=== PATIENT | male | born 1960 | race African-American/Black ===

== ENCOUNTER 2016-09-28 14:07 | Emergency (ER) | payer MEDICARE, MEDICAID ==
[~2016-09-28] VITALS: Ht 182.9 cm; Wt 90.7 kg
[2016-09-28 14:10] VITALS: BP 176/84
--- NOTE | 2016-09-28 14:37 | Emergency Room Report ---
History of Present Illness General Chief Complaint: Seizure Source: Patient, EMS Present Illness HPI Patient is a 56-year-old male who presented after a witnessed seizure. Patient poorly had prior history of seizure disorder. 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 He had no complaints of pain at this time. Patient reported taking Dilantin. The patient was noted initially to be postictal. Allergies: Coded Allergies: No Known Allergies (Unverified , 09/28/16) Patient History Past Medical History: see triage record Reviewed Nursing Documentation: PMH: Agreed, PSxH: Agreed Nursing Documentation-PMH Past Medical History: No History, Except For Hx Seizures: Yes Review of Systems All Other Systems: limited - by mental status Physical Exam Vital Signs Date Time Temp Pulse Resp B/P Pulse Ox O2 Delivery O2 Flow Rate FiO2 09/28/16 14:01 98.4 88 18 176/84 97 Room Air Sp02 EP Interpretation: reviewed, normal General Appearance: normal inspection, well appearing, no apparent distress, alert, GCS 15 Head: atraumatic ENT: normal ENT inspection, normal voice, uvula midline Neck: normal inspection, full range of motion, supple, no bony tend Respiratory: normal inspection, lungs clear, normal breath sounds, no respiratory distress, no retraction, no wheezing Cardiovascular #1: regular rate, rhythm, no edema Gastrointestinal: normal inspection, normal bowel sounds, non tender, soft, no guarding, no hernia Genitourinary: no CVA tenderness Musculoskeletal: normal inspection, back normal, normal range of motion Neurologic: normal inspection, alert, oriented x3, responsive, speech normal Psychiatric: normal inspection, judgement/insight normal, mood/affect normal Skin: normal inspection, normal color, no rash Medical Decision Making Diagnostic Impression: Primary Impression: Epileptic seizure, generalized ER Course Patient presented for seizure. Differential diagnosis included cysticercosis, Medication noncompliance,electrolyte abnormality, mass lesion, or cranial hemorrhage. Because of complexity of patient's case laboratory testing and imaging studies were ordered.A CT the head read by radiology showed no evidence of intracranial hemorrhage or mass lesions. Patient was given IV Keppra. The patient was also given Ativan IV. The patient was noted to have improvement in mental status a a brief seizure. The patient was given prescriptions for further doses of medications.The time of discharge patient was oriented awake and alert and ambulatory without assistance Labs Test 09/28/16 14:45 White Blood Count 10.5 K/UL (4.8-10.8) Red Blood Count 4.00 M/UL (4.70-6.10) Hemoglobin 14.1 G/DL (14.2-18.0) Hematocrit 42.9 % (42.0-52.0) Mean Corpuscular Volume 107 FL (80-99) Mean Corpuscular Hemoglobin 35.3 PG (27.0-31.0) Mean Corpuscular Hemoglobin Concent 32.9 G/DL (32.0-36.0) Red Cell Distribution Width 12.0 % (11.6-14.8) Platelet Count 139 K/UL (150-450) Mean Platelet Volume 9.1 FL (6.5-10.1) Neutrophils (%) (Auto) 84.5 % (45.0-75.0) Lymphocytes (%) (Auto) 9.1 % (20.0-45.0) Monocytes (%) (Auto) 5.8 % (1.0-10.0) Eosinophils (%) (Auto) 0.0 % (0.0-3.0) Basophils (%) (Auto) 0.5 % (0.0-2.0) Sodium Level 141 mEQ/L (135-145) Potassium Level 3.6 mEQ/L (3.4-4.9) Chloride Level 102 mEQ/L (98-107) Carbon Dioxide Level 25 mEQ/L (20-30) Anion Gap 14 (5-15) Blood Urea Nitrogen 14 mg/dL (7-23) Creatinine 1.0 mg/dL (0.7-1.2) Estimat Glomerular Filtration Rate > 60 mL/min (>60) Glucose Level 121 mg/dL (74-106) Calcium Level 9.8 mg/dL (8.6-10.2) Total Bilirubin 0.8 mg/dL (0.0-1.2) Aspartate Amino Transf (AST/SGOT) 22 U/L (5-40) Alanine Aminotransferase (ALT/SGPT) 15 U/L (3-41) Alkaline Phosphatase 91 U/L (40-129) Troponin I < 0.30 ng/mL (<=0.30) Total Protein 7.3 g/dL (6.6-8.7) Albumin 4.2 g/dL (3.5-5.2) Globulin 3.1 g/dL Albumin/Globulin Ratio 1.3 (1.0-2.7) Phenytoin (Dilantin) Level < 0.8 ug/mL (10-20) Valproic Acid (Depakene) Level < 3 ug/mL (50-100) Phenobarbital Level < 2.4 ug/mL (20.0-40.0) Last Vital Signs Date Time Temp Pulse Resp B/P Pulse Ox O2 Delivery O2 Flow Rate FiO2 09/28/16 14:01 98.4 88 18 176/84 97 Room Air Status: improved Disposition: HOME, SELF-CARE Condition: Stable Scripts Levetiracetam (KEPPRA) 500 Mg Tablet 500 MG ORAL EVERY 12 HOURS, #60 TAB 0 Refills Prov: Haris Irving 09/28/16 Haris Irving Sep 28, 2016 14:37
[2016-09-28] MEDS ORDERED: LORazepam Inj 2mg/ml 1ml ONE (14:54)
[2016-09-28] MEDS ORDERED: LORazepam Inj 2mg/ml 1ml IV ONE (15:00)
[2016-09-28 15:04] LABS: BASOPHILS % (AUTO) 0.5 % (0.0-2.0); LYMPHOCYTES % (AUTO) 9.1 % (20.0-45.0); MEAN CORPUSCULAR HEMOGLOBIN 35.3 PG (27.0-31.0); MEAN CORPUSCULAR HGB CONC 32.9 G/DL (32.0-36.0); MEAN CORPUSCULAR VOLUME 107 FL (80-99); MEAN PLATELET VOLUME 9.1 FL (6.5-10.1); MONOCYTES % (AUTO) 5.8 % (1.0-10.0); NEUTROPHILS % (AUTO) 84.5 % (45.0-75.0); PLATELET COUNT 139 K/UL (150-450); WHITE BLOOD COUNT 10.5 K/UL (4.8-10.8)
[2016-09-28 15:19] LABS: ALANINE AMINOTRANSFERASE 15 U/L (3-41); ALBUMIN/GLOBULIN RATIO 1.3 (1.0-2.7); ANION GAP 14 (5-15); ASPARTATE AMINO TRANSFERASE 22 U/L (5-40); CALCIUM 9.8 mg/dL (8.6-10.2); CARBON DIOXIDE 25 mEQ/L (20-30); CHLORIDE 102 mEQ/L (98-107); GLOMERULAR FILTRATION RATE > 60 mL/min (>60); HEMOLYSIS 4; POTASSIUM 3.6 mEQ/L (3.4-4.9); SODIUM 141 mEQ/L (135-145); TOTAL PROTEIN 7.3 g/dL (6.6-8.7); TROPONIN I < 0.30 ng/mL (<=0.30); VALPROIC ACID < 3 ug/mL (50-100)
[2016-09-28 16:00] VITALS: BP 154/83
[2016-09-28] MEDS ORDERED: levETIRAcetam 500mg/NS100ml 100 ML IVPB ONE (16:15)
[2016-09-28 16:30] VITALS: BP 160/73
[2016-09-28 17:30] VITALS: BP 126/92
[2016-09-28] MEDS ORDERED: KEPPRA500 M4 ORAL (17:47)
[2016-09-28 19:32] VITALS: BP 148/72
[2016-09-28 19:34] VITALS: BP 149/72
--- NOTE | 2016-09-29 14:34 | Diagnostic Imaging Report ---
Indication: Altered mental status Technique: Contiguous 5 mm thick transaxial imaging of the head obtained in a Siemens Sensation [address] scanner. Soft tissue and bone windows generated. Total Dose length Product (DLP): [address] Dose Index Volume (CTDIvol): 70.38 mGy Comparison: none Findings: The size and configuration of the cortical sulci, basal cisterns, and ventricles are within normal limits for age. There is no mass effect, midline shift, or edema identified. There is no evidence of acute hemorrhage or abnormal intra-axial or extra-axial fluid collections. The bones and soft tissues are unremarkable. Impression: No mass effect, edema or acute bleed. [facility] has communicated the preliminary results to the Emergency Department. Their findings are largely concordant with this report. The CT scanner at [facility] is accredited by the [employer] and the scans are performed using dose optimization techniques as appropriate to a performed exam including Automatic Exposure control.
--- NOTE | 2016-09-30 16:49 | Cardiology Report ---
APPROVED REPORT EKG Measurement Heart [id number] Sinus tachycardia Minimal voltage criteria for LVH, may be normal variant Nonspecific T wave abnormality Abnormal ECG
== END 2016-09-28 19:34 | disposition home or self-care (01) ==
LOC: EDBD 14:07 → EMR 17:50
DX: G40.909 Epilepsy, unspecified, not intractable, without status epilepticus (principal)
CPT/HCPCS: 36415; 70450; 80053; 80164; 80184; 80185; 82962; 84484; 85025; 93005; 96360; 96374; 99284; J1953

== ENCOUNTER 2018-08-14 19:44 | Inpatient (IN) | payer MEDICARE, MEDICAID ==
[~2018-08-14] VITALS: Ht 172.7 cm; Wt 120.1 kg
[~2018-08-14 19:44] MED LIST: KEPPRA500 M4 ORAL
--- NOTE | 2018-08-14 19:50 | NUR ---
ED Nurse Note: pt brought in by [facility] from home c/o SOB and chest pain, per EMS report, pt's sister called 911 because he had increase in lethargy and short of breath since yesterday. noted tachypnea but LS=clear to auscultation. pt AA&ox4, gcs=15, deaf, skin warm and dry, -n/v/d, sinus tach, noted decrease on o2sat, RT contacted, ERMD notified. will cont monitor.
[2018-08-14] MEDS ORDERED: Albuterol ud Inhalation HHN ONE (20:00)
[2018-08-14] MEDS ORDERED: Ipratropium 0.02% Inh Soln 2.5ml UD HHN ONE (20:00)
--- NOTE | 2018-08-14 20:17 | Emergency Room Report ---
History of Present Illness General Chief Complaint: Chest Pain Source: Patient, EMS Present Illness HPI EMS was called by the sister for altered mentation, dyspnea and abdominal distention. The patient has a history of COPD. The patient denies pain at this time. History is difficult to obtain as patient is deaf. It's uncertain how long the patient's been ill but he suffers from several chronic ailments. Paramedics state that the sister denied recent fevers. History of COPD, history of CHF, history of atrial fibrillation. Paramedics state that the sister denied being on blood thinners at this time. Patient is deaf. Allergies: Coded Allergies: No Known Allergies (Unverified , 09/28/16) Patient History Limited by: language barrier, medical condition Past Medical History: see triage record Social History: Denies: smoking, alcohol use, drug use Social History Narrative from home with his sister Reviewed Nursing Documentation: PMH: Agreed; PSxH: Agreed Nursing Documentation-PMH Past Medical History: No History, Except For Hx Cardiac Problems: Yes - AFIB, CHF Hx Hypertension: Yes Hx Diabetes: Yes Hx Seizures: Yes Review of Systems All Other Systems: limited Physical Exam Vital Signs Date Time Temp Pulse Resp B/P (MAP) Pulse Ox O2 Delivery O2 Flow Rate FiO2 08/14/18 19:41 97.5 112 18 148/84 (105) 100 Non-Rebreather Sp02 EP Interpretation: reviewed, abnormal - Interpreted as low by me General Appearance: no apparent distress, alert, non-toxic, Chronically Ill Head: normocephalic, atraumatic Eyes: bilateral eye normal inspection, bilateral eye PERRL, bilateral eye EOMI ENT: moist mucus membranes - Poor dentition Neck: full range of motion, supple Respiratory: decreased breath sounds, rales, wheezing, expiration Cardiovascular #1: regular rate, rhythm, edema - Anasarca with 2-3+ pit Cardiovascular #2: 2+ radial (R) Gastrointestinal: no guarding, no rebound, distended, decreased bowel sounds, overweight Genitourinary: other - Edema Musculoskeletal: swelling, other - Decreased range of motion Neurologic: alert, sensory intact, motor weakness - Diffuse Psychiatric: mood/affect normal Skin: warm/dry, cyanosis Medical Decision Making Diagnostic Impression: Primary Impression: CHF (congestive heart failure) Qualified Codes: I50.9 - Heart failure, unspecified Additional Impressions: Anasarca Hypoxia Hypothyroid Qualified Codes: E03.9 - Hypothyroidism, unspecified ER Course Patient with dyspnea, anasarca with history of COPD and CHF. Differential includes acute myocardial infarction, digestive heart failure,'s COPD exacerbation, pneumonia, electrolyte imbalance amongst others. Patient is obviously fluid overloaded at this time. He does have some bronchospasm and breathing treatments will be ordered. In addition a Lasix is ordered. The patient will be evaluated with EKG, chest x-ray and labs including blood cultures and lactic acid. EKG was sinus tachycardia rate [address]-T wave changes no acute injury. Chest x-ray with CHF and cardiomegaly. WBC normal. CMP with elevated LFTs (congestion?). CK mildly elevated. UA with proteinuria. O2 sats variable. Starting BIPAP. Discussed with Dr. Anderson. ABG on BIPAP with hypoxia. Elevated TSH suggests low thyroid. Laboratory Tests Test 08/14/18 20:00 08/14/18 23:32 White Blood Count 6.7 K/UL (4.8-10.8) Red Blood Count 3.25 M/UL (4.70-6.10) L Hemoglobin 10.3 G/DL (14.2-18.0) L Hematocrit 31.7 % (42.0-52.0) L Mean Corpuscular Volume 98 FL (80-99) Mean Corpuscular Hemoglobin 31.7 PG (27.0-31.0) H Mean Corpuscular Hemoglobin Concent 32.5 G/DL (32.0-36.0) Red Cell Distribution Width 16.0 % (11.6-14.8) H Platelet Count 111 K/UL (150-450) L Mean Platelet Volume 8.6 FL (6.5-10.1) Neutrophils (%) (Auto) 75.5 % (45.0-75.0) H Lymphocytes (%) (Auto) 15.3 % (20.0-45.0) L Monocytes (%) (Auto) 7.9 % (1.0-10.0) Eosinophils (%) (Auto) 0.2 % (0.0-3.0) Basophils (%) (Auto) 1.1 % (0.0-2.0) Prothrombin Time 12.5 SEC (9.30-11.50) H Prothrombin Time INR 1.2 (0.9-1.1) H PTT 27 SEC (23-33) Urine Color Yellow Urine Appearance Clear Urine pH 5 (4.5-8.0) Urine Specific [place] 1.020 (1.005-1.035) Urine Protein 3+ (NEGATIVE) H Urine Glucose (UA) Negative (NEGATIVE) Urine Ketones Negative (NEGATIVE) Urine Blood Negative (NEGATIVE) Urine Nitrite Negative (NEGATIVE) Urine Bilirubin Negative (NEGATIVE) Urine Urobilinogen 1 MG/DL (0.0-1.0) H Urine Leukocyte Esterase Negative (NEGATIVE) Urine RBC 0-2 /HPF (0 - 0) H Urine WBC 0-2 /HPF (0 - 0) Urine Squamous Epithelial Cells None /LPF (NONE/OCC) Urine Bacteria Few /HPF (NONE) Sodium Level 144 MMOL/L (136-145) Potassium Level 4.5 MMOL/L (3.5-5.1) Chloride Level 106 MMOL/L (98-107) Carbon Dioxide Level 28 MMOL/L (21-32) Anion Gap 10 mmol/L (5-15) Blood Urea Nitrogen 15 mg/dL (7-18) Creatinine 1.2 MG/DL (0.55-1.30) Estimate Glomerular Filtration Rate > 60 mL/min (>60) Glucose Level 131 MG/DL (74-106) H Lactic Acid Level 1.70 mmol/L (0.4-2.0) Calcium Level 9.9 MG/DL (8.5-10.1) Total Bilirubin 1.2 MG/DL (0.2-1.0) H Direct Bilirubin 0.3 MG/DL (0.0-0.3) Aspartate Amino Transferase (AST) 42 U/L (15-37) H Alanine Aminotransferase (ALT) 27 U/L (12-78) Alkaline Phosphatase 297 U/L (46-116) H Total Creatine Kinase 174 U/L (26-308) Troponin I 0.027 ng/mL (0.000-0.056) Pro-B-Type Natriuretic Peptide 6743 pg/mL (0-125) H Total Protein 8.6 G/DL (6.4-8.2) H Albumin 3.8 G/DL (3.4-5.0) Globulin 4.8 g/dL Albumin/Globulin Ratio 0.8 (1.0-2.7) L Lipase 119 U/L (73-393) Thyroid Stimulating Hormone (TSH) 3.885 uiU/mL (0.358-3.740) Arterial Blood pH 7.449 (7.350-7.450) Arterial Blood Partial Pressure CO2 38.6 mmHg (35.0-45.0) Arterial Blood Partial Pressure O2 57.5 mmHg (75.0-100.0) L Arterial Blood HCO3 26.2 mmol/L (22.0-26.0) H Arterial Blood Oxygen Saturation 86.7 % (95-100) *L Arterial Blood Base Excess 2.1 (-2-2) H Carlos Test Positive EKG Diagnostic Results Rate: tachycardiac Rhythm: NSR ST Segments: no acute changes Rhythm Strip Diag. Results EP Interpretation: yes Rhythm: no PVC's, no ectopy, other - Sinus tachycardia Chest X-Ray Diagnostic Results Chest X-Ray Diagnostic Results : Chest X-Ray Ordered: Yes # of Views/Limited/Complete: 1 View Indication: Shortness of Breath EP Interpretation: Yes Interpretation: no pneumothorax, other - CHF cardiomegaly and and possible effusions Impression: Other Electronically Signed by: Electronically signed by Faustino Brito MD Last Vital Signs Date Time Temp Pulse Resp B/P (MAP) Pulse Ox O2 Delivery O2 Flow Rate FiO2 08/15/18 00:51 97.4 114 20 131/76 91 Bi-pap 28 08/14/18 23:20 Status: improved Disposition: ADMITTED INPATIENT Condition: Serious Faustino Brito MD Aug 14, 2018 20:17
[2018-08-14 20:23] LABS: BASOPHILS % (AUTO) 1.1 % (0.0-2.0); EOSINOPHILS % (AUTO) 0.2 % (0.0-3.0); HEMATOCRIT 31.7 % (42.0-52.0); HEMOGLOBIN 10.3 G/DL (14.2-18.0); LYMPHOCYTES % (AUTO) 15.3 % (20.0-45.0); MEAN CORPUSCULAR VOLUME 98 FL (80-99); MONOCYTES % (AUTO) 7.9 % (1.0-10.0); NEUTROPHILS % (AUTO) 75.5 % (45.0-75.0); PLATELET COUNT 111 K/UL (150-450); RED BLOOD COUNT 3.25 M/UL (4.70-6.10); WHITE BLOOD COUNT 6.7 K/UL (4.8-10.8)
[2018-08-14 20:26] LABS: ANION GAP 10 mmol/L (5-15); BLOOD UREA NITROGEN 15 mg/dL (7-18); CALCIUM 9.9 MG/DL (8.5-10.1); CARBON DIOXIDE 28 MMOL/L (21-32); CHLORIDE 106 MMOL/L (98-107); CREATININE 1.2 MG/DL (0.55-1.30); POTASSIUM 4.5 MMOL/L (3.5-5.1); SODIUM 144 MMOL/L (136-145)
[2018-08-14 20:30] VITALS: BP 126/86
[2018-08-14 20:30] LABS: INR 1.2 (0.9-1.1)
[2018-08-14] MEDS ORDERED: LIPITOR40 MG ORAL (20:35)
[2018-08-14] MEDS ORDERED: LEXAPRO20 MG ORAL (20:35)
[2018-08-14] MEDS ORDERED: METFORMIN HCL1000 M1 ORAL ×2 (20:35→23:21)
[2018-08-14] MEDS ORDERED: LANTUS SOL100 UNIT/1 SUBQ ×2 (20:35→23:21)
[2018-08-14] MEDS ORDERED: FUROSEMIDE40 MG ORAL ×2 (20:35→23:21)
[2018-08-14] MEDS ORDERED: KEPPRA1000 MG ORAL ×2 (20:35→23:21)
--- NOTE | 2018-08-14 20:36 | NUR ---
June- Sister [phone]
[2018-08-14 20:40] LABS: ALANINE AMINOTRANSFERASE 27 U/L (12-78); ALBUMIN 3.8 G/DL (3.4-5.0); ALBUMIN/GLOBULIN RATIO 0.8 (1.0-2.7); ALKALINE PHOSPHATASE 297 U/L (46-116); ASPARTATE AMINO TRANSFERASE 42 U/L (15-37); BILIRUBIN,TOTAL 1.2 MG/DL (0.2-1.0); CREATINE KINASE 174 U/L (26-308)
[2018-08-14 20:41] LABS: BILIRUBIN,DIRECT 0.3 MG/DL (0.0-0.3)
--- NOTE | 2018-08-14 21:00 | NUR ---
ED Nurse Note: CONTACTED SISTER TO NOTIFY PT'S CONDITION AND FOR MEDICATION INFO.
[2018-08-14 21:25] LABS: APPEARANCE,URINE CLEAR; BILIRUBIN, URINE NEGATIVE (NEGATIVE); GLUCOSE, URINE (UA) NEGATIVE (NEGATIVE); KETONES,URINE NEGATIVE (NEGATIVE); LEUKOCYTE ESTERASE ,URINE NEGATIVE (NEGATIVE); NITRITE,URINE NEGATIVE (NEGATIVE); PH,URINE 5 (4.5-8.0); PROTEIN,URINE 3+ (NEGATIVE); UROBILINOGEN,URINE 1 MG/DL (0.0-1.0)
[2018-08-14 21:30] VITALS: BP_SYST 122; BP_DIAS 56; BP_DIAS 87
[2018-08-14 21:32] LABS: COLOR,URINE YELLOW
--- NOTE | 2018-08-14 22:00 | NUR ---
ED Nurse Note: PT HAD BM X1, NORMAL BROWN, MOD AMOUNT, PT CLEANED AND CHANGED, PT USED BEDSIDE COMMODE, NOTED STEADY GAIT W/ MIN ASSIST. WILL CONT MONITOR.
[2018-08-14 22:30] VITALS: BP 126/85
--- NOTE | 2018-08-14 23:00 | NUR ---
ED Nurse Note: NOTED PT IN INCREASE RESP EFFORT WITH TACHYPNEA AFTER BREATHING TX, ERMD NOTIFIED REGARDING PT'S CONDITION.
[2018-08-14 23:20] VITALS: BP 135/76
[2018-08-14] MEDS ORDERED: BIDIL TABLET1 EACH PO (23:21)
[2018-08-14] MEDS ORDERED: LISINOPRIL5 MG ORAL (23:21)
[2018-08-14] MEDS ORDERED: SYNTHROID137 MCG ORAL (23:21)
[2018-08-14] MEDS ORDERED: METOPROLOL SUCC25 MG ORAL (23:21)
[2018-08-14] MEDS ORDERED: AMLODIPINE BESY10 MG ORAL (23:21)
[2018-08-14] MEDS ORDERED: GLIPIZIDE10 MG PO (23:21)
[2018-08-14] MEDS ORDERED: ISOSORBIDE DINI20 M2 PO (23:21)
[2018-08-14] MEDS ORDERED: BUMETANIDE1 MG ORAL ×2 (23:21)
--- NOTE | 2018-08-14 23:39 | NUR ---
ED Nurse Note: CONTACTED RT FOR BIPAP
--- NOTE | 2018-08-14 23:45 | NUR ---
ED Nurse Note: PT RESTING AT THIS TIME, VSS, ON BIPAP, WILL CONT MONITOR.
--- NOTE | 2018-08-15 00:18 | NUR ---
ED Nurse Note: CALLED TO GIVE REPORT TO SDU, RECEIVING RN CURRENTLY UNAVAILABLE, CALL BACK IN 10.
--- NOTE | 2018-08-15 00:43 | NUR ---
ED Nurse Note: REPORT GIVEN TO RIMMA SHORT FROM [facility]
--- NOTE | 2018-08-15 01:00 | NUR ---
ED Nurse Note: pt transferred to SDU with all belongings sent w/ completed list, care endorsed to RIMMA Araiza,iv intact and patent. sinus tach, rt at the bedside.
--- NOTE | 2018-08-15 01:30 | NUR ---
NURSE NOTES: Pt report and pt was brought up with [facility]. Pt appears to be in stable condition as he is alert and oriented times 4 and able to follow commands. Pt was brought up with all belongings. Pt appears to be saturating at 100% with BiPAP. pt be rails are padded. all safety precautions are active, bed is in lowest position with call light within reach, bed alarm active. will establish plan of care.
[2018-08-15] MEDS ORDERED: LIPITOR40 MG ORAL (02:01)
[2018-08-15] MEDS ORDERED: LANTUS SOL100 UNIT/1 SUBQ (02:19)
--- NOTE | 2018-08-15 02:30 | NUR ---
NURSE NOTES: Jose Juan Milner called and stated to continue all home meds as well as AM BMP, Trop, Cardiac diet, and SCDs. will place out orders.
[2018-08-15 04:00] VITALS: BP 124/74
[2018-08-15 05:20] LABS: ANION GAP 8 mmol/L (5-15); BLOOD UREA NITROGEN 15 mg/dL (7-18); CALCIUM 9.4 MG/DL (8.5-10.1); CARBON DIOXIDE 30 MMOL/L (21-32); CHLORIDE 108 MMOL/L (98-107); CREATININE 1.2 MG/DL (0.55-1.30); POTASSIUM 3.3 MMOL/L (3.5-5.1); SODIUM 146 MMOL/L (136-145)
[2018-08-15] MEDS: GlipiZIDE 5mg tab ORAL SCH ×2 (05:57→17:19)
[2018-08-15] MEDS ORDERED: Furosemide 40mg tab ORAL ONE (06:30)
--- NOTE | 2018-08-15 07:10 | NUR ---
HAND-OFF: Report given to Jose G BENITEZ.
--- NOTE | 2018-08-15 07:22 | NUR ---
NURSE NOTES: Received report from RIMMA Hicks. Patient is resting in bed in stable condition. No s/sx of SOB, breathing is even and unlabored. Denies any presence of pain or discomfort at this time. Bed is in lowest position, brakes engaged. Díaz is patent and draining. Call light is kept within easy reach. Will continue to monitor patient.
[2018-08-15 08:00] VITALS: BP 119/77
[2018-08-15] MEDS: Lisinopril 2.5mg tab ORAL SCH (08:23)
[2018-08-15] MEDS: metFORMIN 500mg tab ORAL SCH ×2 (08:24→17:19)
[2018-08-15] MEDS ORDERED: Bumetanide 1mg tab ORAL SCH (09:00)
[2018-08-15] MEDS ORDERED: Metoprolol Succinate XL 25mg tab ORAL SCH (09:00)
--- NOTE | 2018-08-15 09:12 | NUR ---
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 ANASARCA VS: BP 148/84, P 118, T 97.5, RR 18, SpO2 100 on Bi-pap FiO2 28 RBC 3.25, H&H 10.3/31.7, Na 146, K 3.3 IS:LASIX 40mg ATROVENT 500 mcg PROVENTIL 5mg ADMITTED TO [facility]U DCP: RETURN HOME
--- NOTE | 2018-08-15 09:25 | NUR ---
NURSE NOTES: Informed Dr. Anderson of potassium level of 3.3. acknowledge and ordered k-dur 20 mEq PO x1. Order entered, noted, and carried out. Will continue to monitor patient.
--- NOTE | 2018-08-15 10:13 | NUR ---
*-* INSURANCE *-* ALL AVAILABLE CLINICALS AND REVIEWS HAVE BEEN FACED TO: [facility]: ANNY LARSEN P:[phone] F:[phone]
--- NOTE | 2018-08-15 10:22 | Diagnostic Imaging Report ---
Indication: Dyspnea Comparison: None A single view chest radiograph was obtained. Findings: There is evidence of pulmonary vascular congestion with peribronchial cuffing and cardiomegaly interstitial densities and a right pleural effusion. IMPRESSION: CHF
[2018-08-15] MEDS: cefTRIAXone 1 GM in D5W 55 ML IVPB SCH (10:52)
[2018-08-15] MEDS: Solu-MEDROL 40mg Inj IVP SCH ×2 (10:52→21:26)
--- NOTE | 2018-08-15 11:00 | NUR ---
NURSE NOTES: Irene Benitez called nurse station, per patient Ms. Benitez may be provided medical information. Per Eli, they are patient's power of residential pest control technician and will visit to provide documentation. Noted. Ms. Benitez tel: . Charge nurse made aware. Will continue to monitor patient. Addendum: 08/15/18 at 1610 by OSCAR LARSON RN NURSE NOTES: Per Ms. Benitez, she is patient's sister and lives with her. Noted.
[2018-08-15 12:00] VITALS: BP 131/86
--- NOTE | 2018-08-15 12:27 | Cardiology Progress Note ---
Assessment/Plan Assessment/Plan The patient is seen and examined, full consult note will be dictated. Objective Last 24 Hour Vital Signs Date Time Temp Pulse Resp B/P (MAP) Pulse Ox O2 Delivery O2 Flow Rate FiO2 08/15/18 08:23 109 119/77 08/15/18 08:23 119/77 08/15/18 08:22 109 119/77 08/15/18 08:00 5.0 08/15/18 08:00 Bi-pap 08/15/18 08:00 98.4 109 24 119/77 (91) 93 08/15/18 05:58 124/74 08/15/18 04:55 108 19 95 Facial 40 08/15/18 04:00 Bi-pap 08/15/18 04:00 110 08/15/18 04:00 98.1 110 20 124/74 (91) 96 08/15/18 03:54 103 23 94 Facial 40 08/15/18 02:00 Bi-pap 15.0 08/15/18 01:58 105 08/15/18 01:03 118 24 92 Facial 40 08/15/18 00:51 97.4 114 20 131/76 91 Bi-pap 28 08/15/18 00:21 25 08/14/18 23:50 110 23 94 Facial 28 08/14/18 23:20 98.2 115 14 135/76 92 Bi-pap 28 08/14/18 22:30 98.2 112 14 126/85 92 Nasal Cannula 3.0 08/14/18 21:30 97.5 112 14 122/87 92 Nasal Cannula 3.0 08/14/18 20:44 102 14 89 Nasal Cannula 2.0 28 08/14/18 20:34 28 08/14/18 20:30 97.5 118 12 126/86 92 Nasal Cannula 3.0 08/14/18 20:30 118 18 Nasal Cannula 3.0 08/14/18 20:05 112 12 87 Nasal Cannula 2.0 28 08/14/18 19:41 97.5 112 18 148/84 (105) 100 Non-Rebreather Intake and Output 08/14/18 08/15/18 18:59 06:59 Intake Total 40 ml Output Total 500 ml Balance -460 ml Intake IV Total 40 ml Output Urine Total 500 ml Laboratory Tests Test 08/14/18 20:00 08/14/18 23:32 6/3/19 03:40 White Blood Count 6.7 K/UL (4.8-10.8) Red Blood Count 3.25 M/UL (4.70-6.10) L Hemoglobin 10.3 G/DL (14.2-18.0) L Hematocrit 31.7 % (42.0-52.0) L Mean Corpuscular Volume 98 FL (80-99) Mean Corpuscular Hemoglobin 31.7 PG (27.0-31.0) H Mean Corpuscular Hemoglobin Concent 32.5 G/DL (32.0-36.0) Red Cell Distribution Width 16.0 % (11.6-14.8) H Platelet Count 111 K/UL (150-450) L Mean Platelet Volume 8.6 FL (6.5-10.1) Neutrophils (%) (Auto) 75.5 % (45.0-75.0) H Lymphocytes (%) (Auto) 15.3 % (20.0-45.0) L Monocytes (%) (Auto) 7.9 % (1.0-10.0) Eosinophils (%) (Auto) 0.2 % (0.0-3.0) Basophils (%) (Auto) 1.1 % (0.0-2.0) Prothrombin Time 12.5 SEC (9.30-11.50) H Prothromb Time International Ratio 1.2 (0.9-1.1) H Activated Partial Thromboplast Time 27 SEC (23-33) Urine Color Yellow Urine Appearance Clear Urine pH 5 (4.5-8.0) Urine Specific [place] 1.020 (1.005-1.035) Urine Protein 3+ (NEGATIVE) H Urine Glucose (UA) Negative (NEGATIVE) Urine Ketones Negative (NEGATIVE) Urine Blood Negative (NEGATIVE) Urine Nitrite Negative (NEGATIVE) Urine Bilirubin Negative (NEGATIVE) Urine Urobilinogen 1 MG/DL (0.0-1.0) H Urine Leukocyte Esterase Negative (NEGATIVE) Urine RBC 0-2 /HPF (0 - 0) H Urine WBC 0-2 /HPF (0 - 0) Urine Squamous Epithelial Cells None /LPF (NONE/OCC) Urine Bacteria Few /HPF (NONE) Sodium Level 144 MMOL/L (136-145) 146 MMOL/L (136-145) H Potassium Level 4.5 MMOL/L (3.5-5.1) 3.3 MMOL/L (3.5-5.1) L Chloride Level 106 MMOL/L (98-107) 108 MMOL/L (98-107) H Carbon Dioxide Level 28 MMOL/L (21-32) 30 MMOL/L (21-32) Anion Gap 10 mmol/L (5-15) 8 mmol/L (5-15) Blood Urea Nitrogen 15 mg/dL (7-18) 15 mg/dL (7-18) Creatinine 1.2 MG/DL (0.55-1.30) 1.2 MG/DL (0.55-1.30) Estimat Glomerular Filtration Rate > 60 mL/min (>60) > 60 mL/min (>60) Glucose Level 131 MG/DL (74-106) H 84 MG/DL (74-106) Lactic Acid Level 1.70 mmol/L (0.4-2.0) Calcium Level 9.9 MG/DL (8.5-10.1) 9.4 MG/DL (8.5-10.1) Total Bilirubin 1.2 MG/DL (0.2-1.0) H Direct Bilirubin 0.3 MG/DL (0.0-0.3) Aspartate Amino Transf (AST/SGOT) 42 U/L (15-37) H Alanine Aminotransferase (ALT/SGPT) 27 U/L (12-78) Alkaline Phosphatase 297 U/L (46-116) H Total Creatine Kinase 174 U/L (26-308) Troponin I 0.027 ng/mL (0.000-0.056) 0.040 ng/mL (0.000-0.056) Pro-B-Type Natriuretic Peptide 6743 pg/mL (0-125) H Total Protein 8.6 G/DL (6.4-8.2) H Albumin 3.8 G/DL (3.4-5.0) Globulin 4.8 g/dL Albumin/Globulin Ratio 0.8 (1.0-2.7) L Lipase 119 U/L (73-393) Thyroid Stimulating Hormone (TSH) 3.885 uiU/mL (0.358-3.740) Arterial Blood pH 7.449 (7.350-7.450) Arterial Blood Partial Pressure CO2 38.6 mmHg (35.0-45.0) Arterial Blood Partial Pressure O2 57.5 mmHg (75.0-100.0) L Arterial Blood HCO3 26.2 mmol/L (22.0-26.0) H Arterial Blood Oxygen Saturation 86.7 % (95-100) *L Arterial Blood Base Excess 2.1 (-2-2) H Carlos Test Positive Sheng Smith MD Aug 15, 2018 12:27
[2018-08-15] MEDS: metOLazone 2.5 MG TAB ORAL SCH (13:29)
--- NOTE | 2018-08-15 14:30 | NUR ---
NURSE NOTES: Called Dr. Smith's office, spoke with dental secretary, left message regarding STAT magnesium level fo 1.4. Patient is alert and oriented x 4. Awaiting call back. Will continue to monitor patient.
--- NOTE | 2018-08-15 15:30 | NUR ---
NURSE NOTES: Called Dr. Smith's office, second call. Spoke with administrative secretary, per administrative secretary informed Dr. Smith. Awaiting call back. Will continue to monitor patient.
[2018-08-15 16:00] VITALS: BP 138/89
--- NOTE | 2018-08-15 16:35 | NUR ---
NURSE NOTES: Called and informed Dr. Anderson of magnesium level of 1.4. MD acknowledged. No new orders given at this time. Will continue to monitor patient.
--- NOTE | 2018-08-15 16:59 | NUR ---
NURSE NOTES: Followed up with Dr. Smith regarding magnesium level of 1.4. Ordered Magnesium sulfate 1 gm IV x 2. Also informed MD of 2D echocardiogram ejection fraction of 10-15%. MD acknowledged. Ordered daily weight, fluid restriction of 1,500ml daily, accurate intake and output, daily BMP and magnesium level. Orders entered, noted, and carried out. Will continue to monitor patient.
--- NOTE | 2018-08-15 17:31 | Diagnostic Imaging Report ---
APPROVED REPORT CPT Code: 01153 Present Symptoms Shortness of breath BILATERAL: Imaging reveals a patent deep venous system bilaterally. There is no evidence of thrombus within the femoral, popliteal or tibial segments. The greater saphenous veins are also within normal limits. Doppler indicates normal spontaneous flow within these segments. INCIDENTAL FINDING: Enlarged lymph node noted near left groin area.
--- NOTE | 2018-08-15 18:15 | History and Physical Report ---
DATE OF ADMISSION: 08/14/2018 HISTORY OF PRESENT ILLNESS: This is a 57-year-old male, who was admitted to the hospital overnight due to findings of pulmonary edema. The patient is a 57-year-old male, who presented to the hospital with change in mental status. He also reports shortness of breath and distention of the abdomen. The patient is deaf, unable to communicate, but a previous history is notable of chronic atrial fibrillation, CHF, and COPD. The patient was seen in the emergency room and worked up subsequent to which he was found to have evidence of anemia, normal troponin, normal lactic acid. ABG showed hypoxemia. INR was 1.2. Imaging studies showed evidence of pulmonary edema. He was diuresed and placed in [facility]. He was also started on a BiPAP. PAST MEDICAL HISTORY: Notable for COPD, CHF, atrial fibrillation. HOME MEDICATIONS: Reviewed and reconciled in the chart. REVIEW OF SYSTEMS: Not reliable. PHYSICAL EXAMINATION: GENERAL: Reveals a 57-year-old male. HEENT: Unremarkable. CHEST: Few basilar crackles. HEART: Normal heart sounds. ABDOMEN: Soft. EXTREMITIES: There is 2+ edema bilaterally. VITAL SIGNS: Blood pressure is 119/77, heart rate 104, respirations are 22, O2 saturation 93% on 5 liters of oxygen. He is afebrile. LABORATORY DATA: Lab testing discussed above notable for negative urinalysis. Potassium 3.2 this morning. Coags, INR 1.2. White count 6.7, hemoglobin 9.3. ABG pH 7.44, pCO2 38, pO2 57. IMPRESSION: 1. Pulmonary edema. 2. COPD. 3. Deafness. 4. Seizure disorder. 5. Pulmonary edema. DISCUSSION: Admit to the hospital. We will continue diuresis. Start low-dose steroids given his use of Glucophage. He may have a history of diabetes although this was not clearly elucidated in the records. We will follow carefully. We will discontinue Lasix and Bumex and start intravenous furosemide. We will follow carefully. Jose Juan Anderson M.D. DR: NIKI JOB#: [id number] CC:
--- NOTE | 2018-08-15 19:00 | Consultation ---
DATE OF CONSULTATION: 08/15/2018 CARDIOLOGY CONSULTATION CONSULTING PHYSICIAN: Sheng Smith M.D. REFERRING PHYSICIAN: Jose Juan Anderson M.D. REASON FOR CONSULTATION: Management of heart failure. HISTORY OF PRESENT ILLNESS: The patient is a very unfortunate 57-year-old gentleman, who presents to the emergency department for altered level of consciousness, dyspnea, and abdominal distention. A call was made to the paramedics by his sister as the patient is deaf. The patient apparently has history of congestive heart failure, paroxysmal atrial fibrillation, and COPD. At the time of my evaluation in the emergency department, the patient did not have any specific complaints of shortness of breath or chest pain. Initial blood pressure was 148/48 mmHg and heart rate was 112. A 12-lead electrocardiogram in the emergency department showed sinus tachycardia at rate of [address] and T-wave abnormalities, but no clear-cut evidence of acute ischemia. A chest x-ray, however, showed cardiomegaly with pulmonary edema as well as right pleural effusion. The patient's beta-natriuretic peptide was 6743, however, troponin I level x2 were negative. The patient was also found to have a high TSH level of 3.88 suggestive of mild hypothyroidism. The patient was admitted to [facility] for further evaluation and management of acute heart failure. Cardiology consultation was made at the request of Dr. Anderson. PAST MEDICAL HISTORY: Congestive heart failure, COPD, and paroxysmal atrial fibrillation. PAST SURGICAL HISTORY: Nose surgery. SOCIAL HISTORY: Denies any tobacco, alcohol, or illicit drug use. The patient comes from home accompanied by his sister. ALLERGIES: No known drug allergies. MEDICATIONS: List of medications at home includes amlodipine 10 mg p.o. daily, atorvastatin 40 mg p.o. daily, bumetanide 1 mg p.o. twice daily, Lasix 40 mg daily, glipizide 5 mg twice daily, insulin Lantus 6 units subcutaneously nightly, isosorbide dinitrate 10 mg q.8 h., Keppra 500 mg q.12 h., Synthroid 50 mcg p.o. daily, lisinopril 2.5 mg daily, metformin 1000 mg p.o. twice daily, and metoprolol 25 mg twice daily. REVIEW OF SYSTEMS: Unfortunately, the patient is deaf and could not provide a 12-system review PHYSICAL EXAMINATION: VITAL SIGNS: At the time of arrival to the hospital, blood pressure was 148/__, respirations 18, pulse 112, and temperature 97.5 degrees Fahrenheit. O2 saturation 100% on non-rebreather mask. GENERAL: The patient is a very unfortunate 57-year-old gentleman, obese, deaf therefore not communicating verbally, in mild respiratory distress. The patient appears to be chronically ill. HEENT: Atraumatic and normocephalic. Anicteric. Pupils are equal, round, and reactive to light and accommodation. Conjunctival pallor is present. NECK: JVP cannot be assessed in view of short neck and obesity. No carotid bruit. CARDIOVASCULAR: Normal S1, S2. Regular rate and rhythm. Tachycardic. No murmurs, gallops, or rubs. LUNGS: Diminished breath sounds with bibasilar crackles. ABDOMEN: Distended. No hepatosplenomegaly. Positive bowel sounds. EXTREMITIES: 3+ tense pitting edema to lower extremities. LABORATORY FINDINGS: Sodium was 144, potassium 4.5, chloride 106, bicarbonate 28, BUN 15, and creatinine 1.2. Glucose 131. Calcium 9.9. Troponin I x2 negative. ProBNP was 6743. WBC 6.7, hemoglobin 10.3, hematocrit 31.7, and platelet count 111. ABG was hypoxemic respiratory failure. ASSESSMENT AND PLAN: The patient is a very unfortunate 57-year-old gentleman, seen in Cardiology consultation. 1. Clinically appears to be in acute heart failure with evidence of hypervolemia, the patient's beta-natriuretic peptide is also elevated over 6700. The patient will be continued on furosemide 40 mg twice daily. I would like to add a small dose of metolazone to the regimen. We will continue monitoring I's and O's strictly, fluid restriction 1500 mL per day. I would like to order 2-D echocardiography and assess LV systolic and diastolic function. 2. Paroxysmal atrial fibrillation, currently in sinus rhythm/sinus tachycardia. We will like to optimize metoprolol until after the results of echocardiography is available. 3. Obesity, possible obesity hypoventilation syndrome. 4. History of hypertension. We will continue with the current medical therapy. 5. History of diabetes mellitus. We will consider aspirin and statin for this patient. I would like to thank Dr. Anderson for allowing me to participate in the care of this patient. Sheng Smith M.D. DR: LOC JOB#: [id number] CC:
--- NOTE | 2018-08-15 19:07 | Cardiology Report ---
APPROVED REPORT EXAM: Two-dimensional and M-mode echocardiogram with Doppler and color Doppler. INDICATION Congestive Heart Failure M-Mode DIMENSIONS IVSd1.0 (0.7-1.1cm)Left Atrium (MM)3.3 (1.6-4.0cm) LVDd7.2 (3.5-5.6cm)Aortic Root3.0 (2.0-3.7cm) PWd1.3 (0.7-1.1cm)Aortic Cusp Exc.2.0 (1.5-2.0cm) LVDs5.4 (2.5-4.0cm) PWs1.7 cm Fourr chamber dilated cardiomyopathy, there is severe global left ventricular hypokinesia except the mid inferior wall and the apical septal wall which are hypokinetic. Ischemic cardiomyopathy cannot be excluded. Left ventricular ejection fraction is estimated at 10-15 %. Increased E point-interventricular septal separation c/w left ventricular dysfunction and /or LV enlargement. No evidence of left ventricular hypertrophy. Anterior Echo-free space, may be due to pericardial fat or effusion. Large posterior effusion. Focal aortic valve sclerosis with adequate cusp excursion. Thickened mitral valve leaflets with normal excursion. Mitral annulus and aortic root calcification. Pulmonic valve not well visualized. Normal tricuspid valve structure. IVC dilated at 3.0 cm without physiologic collapse suggestive of RA pressure at least 20 mmHg. Small pericardial effusion. A color flow and spectral Doppler study was performed and revealed: Trace aortic regurgitation. Moderate mitral regurgitation. Mitral inflow velocities cannot be determined due to the underlying atrial arrythmias. Moderate tricuspid regurgitation. Tricuspid systolic velocities suggests peak right ventricular systolic pressure of 42 mmHg, consistent with mild to moderate pulmonary hypertension.
--- NOTE | 2018-08-15 19:19 | NUR ---
HAND-OFF: Report given to RIMMA Garcia.
--- NOTE | 2018-08-15 19:23 | Cardiology Report ---
APPROVED REPORT EKG Measurement Heart [id number] Sinus tachycardia Nonspecific T wave abnormality Abnormal ECG
--- NOTE | 2018-08-15 19:30 | NUR ---
NURSE NOTES: Received patient from RIMMA Araiza. patient is awake and confused. He is responsive to verbal commands. denies pain at this time. patient is on 4 liters nasal cannula with no s/sx of respiratory distress noted. patient is on fluid restriction of 1500 cc/day. educated patient regarding fluid restriction. solis catheter is patent, intact, and draining. IV sites are patent and intact. bed in lowest position and locked, siderails up X 2, call light within reach. patient tried to get out of bed. educated patient to use call light for ambulatory assist. will continue to monitor.
[2018-08-15 20:00] VITALS: BP 120/69
[2018-08-16] VITALS: BP 125/76
[2018-08-16 04:00] VITALS: BP 124/83
[2018-08-16] MEDS: GlipiZIDE 5mg tab ORAL SCH ×2 (06:25→17:56)
[2018-08-16 06:35] LABS: HEMATOCRIT 28.8 % (42.0-52.0); HEMOGLOBIN 9.1 G/DL (14.2-18.0); MEAN CORPUSCULAR VOLUME 100 FL (80-99); PLATELET COUNT 98 K/UL (150-450); RED BLOOD COUNT 2.87 M/UL (4.70-6.10); RED CELL DISTRIBUTION WIDTH 16.5 % (11.6-14.8); WHITE BLOOD COUNT 3.9 K/UL (4.8-10.8)
[2018-08-16 06:58] LABS: ANION GAP 11 mmol/L (5-15); BLOOD UREA NITROGEN 25 mg/dL (7-18); CALCIUM 9.7 MG/DL (8.5-10.1); CARBON DIOXIDE 27 MMOL/L (21-32); CHLORIDE 105 MMOL/L (98-107); CREATININE 1.6 MG/DL (0.55-1.30); SODIUM 143 MMOL/L (136-145)
--- NOTE | 2018-08-16 06:58 | NUR ---
HAND-OFF: Report given to RIMMA Araiza. patient is in stable condition.
--- NOTE | 2018-08-16 07:05 | NUR ---
NURSE NOTES: Received report from RIMMA Tomlinson. Patient is resting in bed, in stable condition. No s/sx of SOB, breathing is even and unlabored. Denies any presence of pain or discomfort at this time. Bed is in lowest position, brakes engaged. Call light is kept within easy reach. Will continue to monitor patient.
[2018-08-16 08:00] VITALS: BP 121/73
--- NOTE | 2018-08-16 08:19 | Pulmonology Progress Note ---
Assessment/Plan Assessment/Plan IMPRESSION: 1. Pulmonary edema. 2. COPD. 3. Deafness. 4. Seizure disorder. 5. Pulmonary edema. 6. DM DISCUSSION: Continue diuresis. Continue low-dose steroids. Monitor for hyperglycemia I will follow carefully. Subjective Interval Events: Looking better; off BiPAP Constitutional: Reports: no symptoms HEENT: Repors: no symptoms Respiratory: Reports: no symptoms Cardiovascular: Reports: no symptoms Gastrointestinal/Abdominal: Reports: no symptoms Genitourinary: Reports: no symptoms Neurologic: Reports: no symptoms Allergies: Coded Allergies: No Known Allergies (Unverified , 09/28/16) Objective Last 24 Hour Vital Signs Date Time Temp Pulse Resp B/P (MAP) Pulse Ox O2 Delivery O2 Flow Rate FiO2 08/16/18 07:00 98 20 97 Room Air 21 08/16/18 06:25 124/83 08/16/18 05:36 83 21 94 08/16/18 05:15 93 26 93 Facial 40 08/16/18 04:00 98.2 81 18 124/83 (97) 97 08/16/18 04:00 40 08/16/18 04:00 Nasal Cannula 4.0 08/16/18 04:00 93 08/16/18 03:31 99 27 97 Facial 40 08/16/18 00:52 98 24 96 Facial 40 08/16/18 00:00 98.1 103 24 125/76 (92) 96 08/16/18 00:00 Nasal Cannula 4.0 08/16/18 00:00 83 08/15/18 23:18 101 23 96 Facial 40 08/15/18 21:24 100 120/69 08/15/18 21:24 120/69 08/15/18 20:00 4.0 08/15/18 20:00 104 08/15/18 20:00 99.2 100 24 120/69 (86) 97 08/15/18 20:00 Nasal Cannula 4.0 08/15/18 19:23 96 18 97 Nasal Cannula 4.0 36 08/15/18 16:00 5.0 08/15/18 16:00 97.5 86 24 138/89 (105) 94 08/15/18 16:00 Bi-pap 08/15/18 16:00 110 08/15/18 13:29 111 131/86 08/15/18 13:28 131/86 08/15/18 12:00 98.3 112 24 131/86 (101) 98 08/15/18 12:00 Bi-pap 08/15/18 12:00 111 08/15/18 12:00 5.0 08/15/18 08:23 109 119/77 08/15/18 08:23 119/77 08/15/18 08:22 109 119/77 Intake and Output 08/15/18 08/16/18 19:00 07:00 Intake Total 855 ml 60 ml Output Total 800 ml 900 ml Balance 55 ml -840 ml Intake Oral 800 ml 60 ml IV Total 55 ml Output Urine Total 800 ml 900 ml # Bowel Movements 1 General Appearance: no acute distress HEENT: normocephalic Respiratory/Chest: chest wall non-tender, lungs clear Cardiovascular: normal peripheral pulses, normal rate Abdomen: normal bowel sounds Microbiology Date/Time Source Procedure Growth Status 08/14/18 20:00 Blood Blood Culture - Preliminary NO GROWTH AFTER 24 HOURS Resulted 08/14/18 19:45 Blood Blood Culture - Preliminary NO GROWTH AFTER 24 HOURS Resulted Laboratory Tests 08/16/18 05:35: White Blood Count 3.9L, Red Blood Count 2.87L, Hemoglobin 9.1L, Hematocrit 28.8L , Mean Corpuscular Volume 100H, Mean Corpuscular Hemoglobin 31.8H, Mean Corpuscular Hemoglobin Concent 31.7L, Red Cell Distribution Width 16.5H, Platelet Count 98L, Mean Platelet Volume 10.0, Neutrophils (%) (Auto) , Lymphocytes (%) (Auto) , Monocytes (%) (Auto) , Eosinophils (%) (Auto) , Basophils (%) (Auto) , Neutrophils % (Manual) [Pending], Lymphocytes % (Manual) [Pending], Platelet Estimate [Pending], Platelet Morphology [Pending], Sodium Level 143, Potassium Level 4.0, Chloride Level 105, Carbon Dioxide Level 27, Anion Gap 11, Blood Urea Nitrogen 25H, Creatinine 1.6H, Estimat Glomerular Filtration Rate 54.1, Glucose Level 172H, Calcium Level 9.7, Magnesium Level 1.9 Current Medications Medications (Trade) Dose Ordered Sig/Nirav Route PRN Reason Start Time Stop Time Status Last Admin Dose Admin Amlodipine Besylate (Norvasc) 10 mg DAILY ORAL 08/15/18 09:00 09/14/18 08:59 08/15/18 08:23 Carvedilol (Coreg) 3.125 mg EVERY 12 HOURS ORAL 08/15/18 21:00 09/14/18 20:59 08/15/18 21:24 Ceftriaxone Sodium 1 gm/ Dextrose 55 ml @ 110 mls/hr Q24H IVPB 08/15/18 11:00 08/22/18 10:59 08/15/18 10:52 Furosemide (Lasix) 40 mg EVERY 12 HOURS IV 08/15/18 10:00 09/14/18 09:59 08/15/18 21:25 Glipizide (Glucotrol) 5 mg BIAC ORAL 08/15/18 06:30 09/14/18 06:29 08/16/18 06:25 Isosorbide Dinitrate (Isordil) 10 mg Q8HR ORAL 08/15/18 06:00 09/14/18 05:59 08/16/18 06:25 Levothyroxine Sodium (Synthroid) 50 mcg DAILY@0630 ORAL 08/15/18 06:30 09/14/18 06:29 08/16/18 06:25 Lisinopril (Zestril) 2.5 mg DAILY ORAL 08/15/18 09:00 09/14/18 08:59 08/15/18 08:23 Metformin HCl (Glucophage) 1,000 mg BID ORAL 08/15/18 09:00 09/14/18 08:59 08/15/18 17:19 Methylprednisolone Sodium Succinate (Solu-MEDROL) 40 mg EVERY 12 HOURS IVP 08/15/18 10:00 09/14/18 09:59 08/15/18 21:26 Metolazone (Zaroxolyn) 2.5 mg DAILY ORAL 08/15/18 13:00 09/14/18 12:59 08/15/18 13:29 Jose Juan Anderson MD Aug 16, 2018 08:19
[2018-08-16] MEDS: metOLazone 2.5 MG TAB ORAL SCH (08:32)
[2018-08-16] MEDS: Lisinopril 2.5mg tab ORAL SCH (08:32)
[2018-08-16] MEDS: metFORMIN 500mg tab ORAL SCH ×2 (08:33→17:56)
[2018-08-16] MEDS ORDERED: Furosemide 40mg tab ORAL SCH (09:00)
--- NOTE | 2018-08-16 09:05 | NUR ---
NURSE NOTES: Dr. Anderson at nurse station. Informed MD that patient takes Lantus at home, also informed MD that blood sugar has been controlled per lab values. MD acknowledged, per MD patient okay to not have Lantus during hospital stay. Patient is noted to be on oral antidiabetics in hospital. Noted. Charge nurse made aware. Will continue to monitor patient.
--- NOTE | 2018-08-16 09:24 | NUR ---
RADIOLOGY DEPT., CHEST X-RAY DONE.-P.DYE
--- NOTE | 2018-08-16 09:29 | NUR ---
*-* INSURANCE *-* UPDATED CLINICALS HAVE BEEN FACED TO: [facility] [place]: ANNY LARSEN P:[phone] F:[phone]
[2018-08-16] MEDS: cefTRIAXone 1 GM in D5W 55 ML IVPB SCH (10:57)
[2018-08-16 12:00] VITALS: BP 120/77
--- NOTE | 2018-08-16 12:06 | Diagnostic Imaging Report ---
Indication: Shortness of breath Technique: One view of the chest Comparison: 08/14/2018 Findings: Heart is enlarged. There is a right-sided pleural effusion again demonstrated. Bilateral interstitial and airspace edema are unchanged Impression: Unchanged, over 2 days, findings as above.
--- NOTE | 2018-08-16 13:29 | Physician Query ---
Clarification is required for compliance, coding accuracy, and to reflect severity of illness for this patient Dear Dr. Jose Juan Anderson Date 08/16/2018 Non Profit Director/CDS Tena Reyes Clinical Documentation States: 08/15 Cardiology note: 57-year-old gentleman, who presents to the emergency department for altered level of consciousness, dyspnea , and abdominal distention...acute heart failure with evidence of hypervolemia Labs: 08/14 ABG pO2 57.5, HCO3 26.2, O2 saturation 86.7 Pulse ox: 08/14: 87 on 2 L NC FiO2 28, 08/15 92 on 15 L FiO2 40 P/F ratio: based on 08/14 pulse ox: 52/28% = 185.714 Treatment: 2-15 liters NC Please clarify if the patient had any of the following conditions based on the above clinical findings: [x] Acute Respiratory Failure [] Chronic Respiratory Failure [] Acute on Chronic Respiratory Failure [x] Acute Respiratory Distress [] Other: [] Unable to Determined Present on Admission: [x] Yes [] No [] Clinically Undetermined Physician signature Date Please also document in your Progress Notes and/or Discharge Summary and indicate if the condition was present on admission. MTDD
--- NOTE | 2018-08-16 13:40 | Physician Query ---
Clarification is required for compliance, coding accuracy, and to reflect severity of illness for this patient Dear Dr.Omar Anderson Date: 08/16/2018 Orthopedics Teacher/CDS Name: Tena Reyes Clinical Documenation States: 08/15 Cardiology note: 57-year-old gentleman, who presents to the emergency department for altered level of consciousness, dyspnea , and abdominal distention...acute heart failure with evidence of hypervolemia HNP: 57-year-old male, who was admitted to the hospital overnight due to findings of pulmonary edema...who presented to the hospital with change in mental status...ABG showed hypoxemia. Labs: 08/14 ABG pO2 57.5, HCO3 26.2, O2 saturation 86.7 Treatment: 2-15 L NC, IV furosemide Please indicate the nature and chronicity of the condition below: [] Metabolic Encephalopathy [] Encephalopathy, Other [] Dementia with delirium [] Other: [x] Not Applicable Present on Admission: [x] Yes [] No [] Clinically Undetermined Physician signature Date Please also document in your Progress Notes and/or Discharge Summary and indicate if the condition was present on admission. MTDD
--- NOTE | 2018-08-16 15:52 | NUR ---
HAND-OFF: Report given to RIMAM Mitchell.
[2018-08-16 16:00] VITALS: BP 98/63
--- NOTE | 2018-08-16 19:00 | NUR ---
NURSE NOTES: Pt report has been received from MALACHI RN [facility]. PT is alert and oriented times 4 and able to follow commands. pt pupils are rounds and reactive to light and accommodating basilaterally. Pt is on a nasal canula running 4L O2 and is saturating at 100 percent, no signs or symptoms of acute respiratory distress noted at this time. Pt is placed on a over head equipment monitor phototypesetting able to display SR, no signs or symptoms of acute cardiac distress noted at this time. safety precautions in place; bed lock, bed rails up times 3 and padded, call light within reach, bed alarm active. will continue plan of care.
--- NOTE | 2018-08-16 19:30 | NUR ---
HAND-OFF: Report given to .DEJA TOPETE RN.
--- NOTE | 2018-08-16 19:36 | NUR ---
CASE MANAGEMENT: REVIEW 08/16/2018 SI:CHF. ANASARCA. T 97.8 HR 89 RR 18 B/P 120/77 SATS 96% ON 4L/NC WBC 3.9 BUN 25 CR 1.6 GLU 172 ABGs pO2 68 HCO3 27.5 O2 SATS 90.7 BE 2.7 IS:LASIX 40mg ATROVENT 500 mcg PROVENTIL 5mg
[2018-08-16 20:00] VITALS: BP 102/62
--- NOTE | 2018-08-16 23:03 | Cardiology Progress Note ---
Assessment/Plan Assessment/Plan 1. Acute systolic and diastolic CHF with LVEF at 10%, continue diuretics, on GDMT. 2. Paroxysmal atrial fibrillation, currently in sinus rhythm/sinus tachycardia. Optimize coreg. 3. Obesity, possible obesity hypoventilation syndrome. 4. HTN, will DC amlodipine, and optimize B-blockers and ACEI. 5. History of diabetes mellitus, consider aspirin and statin. 6. Moderate pulmonary HTN due to Left heart failure. 7. Pericardial effusion. Subjective Subjective Sinus rhythm at rate of 86. Objective Last 24 Hour Vital Signs Date Time Temp Pulse Resp B/P (MAP) Pulse Ox O2 Delivery O2 Flow Rate FiO2 08/16/18 21:06 105/61 08/16/18 20:52 86 107/67 08/16/18 20:00 Nasal Cannula 4.0 08/16/18 20:00 85 08/16/18 20:00 4.0 08/16/18 20:00 98.0 79 17 102/62 (75) 99 08/16/18 19:05 90 19 95 Nasal Cannula 3.0 32 08/16/18 19:05 95 Nasal Cannula 3.0 32 08/16/18 18:00 Nasal Cannula 4.0 08/16/18 16:00 87 08/16/18 16:00 4.0 08/16/18 16:00 98.6 77 18 98/63 (75) 96 08/16/18 16:00 Nasal Cannula 4.0 08/16/18 13:37 120/77 08/16/18 12:00 4.0 08/16/18 12:00 Nasal Cannula 4.0 08/16/18 12:00 91 08/16/18 12:00 97.8 89 18 120/77 (91) 96 08/16/18 08:39 97 121/73 08/16/18 08:33 97 121/73 08/16/18 08:32 121/73 08/16/18 08:00 4.0 08/16/18 08:00 98.2 97 18 121/73 (89) 97 08/16/18 08:00 95 08/16/18 08:00 Nasal Cannula 4.0 08/16/18 07:00 98 20 97 Room Air 21 08/16/18 06:25 124/83 08/16/18 05:36 83 21 94 08/16/18 05:15 93 26 93 Facial 40 08/16/18 04:00 98.2 81 18 124/83 (97) 97 08/16/18 04:00 40 08/16/18 04:00 Nasal Cannula 4.0 08/16/18 04:00 93 08/16/18 03:31 99 27 97 Facial 40 08/16/18 00:52 98 24 96 Facial 40 08/16/18 00:00 98.1 103 24 125/76 (92) 96 08/16/18 00:00 Nasal Cannula 4.0 08/16/18 00:00 83 08/15/18 23:18 101 23 96 Facial 40 Intake and Output 08/15/18 08/16/18 19:00 07:00 Intake Total 855 ml 60 ml Output Total 800 ml 900 ml Balance 55 ml -840 ml Intake Oral 800 ml 60 ml IV Total 55 ml Output Urine Total 800 ml 900 ml # Bowel Movements 1 2D Echo: EF 10%, Global LVHK, Peric.Effu, Grade II LVDD, Mod MR, RAP20 mmHg, RVSP 42 Laboratory Tests Test 08/16/18 05:35 08/16/18 08:08 White Blood Count 3.9 K/UL (4.8-10.8) L Red Blood Count 2.87 M/UL (4.70-6.10) L Hemoglobin 9.1 G/DL (14.2-18.0) L Hematocrit 28.8 % (42.0-52.0) L Mean Corpuscular Volume 100 FL (80-99) H Mean Corpuscular Hemoglobin 31.8 PG (27.0-31.0) H Mean Corpuscular Hemoglobin Concent 31.7 G/DL (32.0-36.0) L Red Cell Distribution Width 16.5 % (11.6-14.8) H Platelet Count 98 K/UL (150-450) L Mean Platelet Volume 10.0 FL (6.5-10.1) Neutrophils (%) (Auto) % (45.0-75.0) Lymphocytes (%) (Auto) % (20.0-45.0) Monocytes (%) (Auto) % (1.0-10.0) Eosinophils (%) (Auto) % (0.0-3.0) Basophils (%) (Auto) % (0.0-2.0) Differential Total Cells Counted 100 Neutrophils % (Manual) 80 % (45-75) H Lymphocytes % (Manual) 15 % (20-45) L Monocytes % (Manual) 5 % (1-10) Eosinophils % (Manual) 0 % (0-3) Basophils % (Manual) 0 % (0-2) Band Neutrophils 0 % (0-8) Platelet Estimate Decreased L Platelet Morphology Normal Hypochromasia 2+ Anisocytosis 1+ Sodium Level 143 MMOL/L (136-145) Potassium Level 4.0 MMOL/L (3.5-5.1) Chloride Level 105 MMOL/L (98-107) Carbon Dioxide Level 27 MMOL/L (21-32) Anion Gap 11 mmol/L (5-15) Blood Urea Nitrogen 25 mg/dL (7-18) H Creatinine 1.6 MG/DL (0.55-1.30) H Estimat Glomerular Filtration Rate 54.1 mL/min (>60) Glucose Level 172 MG/DL (74-106) H Calcium Level 9.7 MG/DL (8.5-10.1) Magnesium Level 1.9 MG/DL (1.8-2.4) Arterial Blood pH 7.420 (7.350-7.450) Arterial Blood Partial Pressure CO2 43.4 mmHg (35.0-45.0) Arterial Blood Partial Pressure O2 68.0 mmHg (75.0-100.0) L Arterial Blood HCO3 27.5 mmol/L (22.0-26.0) H Arterial Blood Oxygen Saturation 90.7 % (95-100) L Arterial Blood Base Excess 2.7 (-2-2) H Carlos Test Positive Microbiology Date/Time Source Procedure Growth Status 08/14/18 20:00 Blood Blood Culture - Preliminary NO GROWTH AFTER 24 HOURS Resulted 08/14/18 19:45 Blood Blood Culture - Preliminary NO GROWTH AFTER 24 HOURS Resulted Objective HEENT: Atraumatic and normocephalic. Anicteric. Pupils are equal, round, and reactive to light and accommodation. Conjunctival pallor is present. NECK: JVP cannot be assessed in view of short neck and obesity. No carotid bruit. CARDIOVASCULAR: Normal S1, S2. Regular rate and rhythm. Tachycardic. No murmurs, gallops, or rubs. LUNGS: Diminished breath sounds with bibasilar crackles. ABDOMEN: Distended. No hepatosplenomegaly. Positive bowel sounds. EXTREMITIES: 3+ tense pitting edema to lower extremities. Sheng Smith MD Aug 16, 2018 23:03
--- NOTE | 2018-08-16 23:23 | NUR ---
RESPIRATORY NOTE: Pt placed on BiPAP for nightly use. Pt on BiPAP 15/5, back up rate 12, 40%. Pt on a Facial mask, skin intact, no redness/breakdowns noted upon placing mask. Foam tape applied on pt's nosebridge/cheeks/chin to prevent any irritations. Pt is alert/awake, follows commands. B/S robin. clear/diminished, nonproductive cough. BiPAP plugged into red outlet, alarms on & audible. Pt resting comfortably, in no apparent distress at this time. Will continue plan of care.
[2018-08-17] VITALS: BP 110/61
[2018-08-17 04:00] VITALS: BP 113/71
--- NOTE | 2018-08-17 05:30 | NUR ---
HAND-OFF: Report given to Herminia SHANKS Tele .
[2018-08-17 05:43] LABS: HEMATOCRIT 27.6 % (42.0-52.0); HEMOGLOBIN 8.8 G/DL (14.2-18.0); MEAN CORPUSCULAR VOLUME 100 FL (80-99); PLATELET COUNT 97 K/UL (150-450); RED BLOOD COUNT 2.75 M/UL (4.70-6.10); RED CELL DISTRIBUTION WIDTH 16.7 % (11.6-14.8); WHITE BLOOD COUNT 5.9 K/UL (4.8-10.8)
[2018-08-17 05:50] LABS: ANION GAP 10 mmol/L (5-15); BLOOD UREA NITROGEN 37 mg/dL (7-18); CALCIUM 9.4 MG/DL (8.5-10.1); CARBON DIOXIDE 28 MMOL/L (21-32); CHLORIDE 105 MMOL/L (98-107); CREATININE 1.7 MG/DL (0.55-1.30); POTASSIUM 3.8 MMOL/L (3.5-5.1); SODIUM 143 MMOL/L (136-145)
[2018-08-17] MEDS: GlipiZIDE 5mg tab ORAL SCH ×2 (07:01→17:27)
--- NOTE | 2018-08-17 07:21 | Pulmonology Progress Note ---
Assessment/Plan Assessment/Plan IMPRESSION: 1. Pulmonary edema. 2. COPD. 3. Deafness. 4. Seizure disorder. 5. Pulmonary edema. 6. DM DISCUSSION: Continue diuresis. Continue low-dose steroids. Monitor for hyperglycemia I will follow carefully. DC planning home with hospice Subjective Interval Events: None new; seen by cardiollogy Constitutional: Reports: no symptoms HEENT: Repors: no symptoms Respiratory: Reports: shortness of breath Cardiovascular: Reports: no symptoms Gastrointestinal/Abdominal: Reports: no symptoms Genitourinary: Reports: no symptoms Neurologic: Reports: no symptoms Allergies: Coded Allergies: No Known Allergies (Unverified , 09/28/16) Objective Last 24 Hour Vital Signs Date Time Temp Pulse Resp B/P (MAP) Pulse Ox O2 Delivery O2 Flow Rate FiO2 08/17/18 07:01 113/71 08/17/18 04:00 98.0 83 17 113/71 (85) 100 08/17/18 04:00 Bi-pap 08/17/18 04:00 86 08/17/18 04:00 40 08/17/18 03:30 87 20 96 Facial 40 08/17/18 01:25 95 16 97 Facial 40 08/17/18 00:00 98.0 90 18 110/61 (77) 100 08/17/18 00:00 Nasal Cannula 4.0 08/17/18 00:00 87 08/16/18 23:21 85 19 99 Facial 40 08/16/18 21:06 105/61 08/16/18 20:52 86 107/67 08/16/18 20:00 Nasal Cannula 4.0 08/16/18 20:00 85 08/16/18 20:00 4.0 08/16/18 20:00 98.0 79 17 102/62 (75) 99 08/16/18 19:05 90 19 95 Nasal Cannula 3.0 32 08/16/18 19:05 95 Nasal Cannula 3.0 32 08/16/18 18:00 Nasal Cannula 4.0 08/16/18 16:00 87 08/16/18 16:00 4.0 08/16/18 16:00 98.6 77 18 98/63 (75) 96 08/16/18 16:00 Nasal Cannula 4.0 08/16/18 13:37 120/77 08/16/18 12:00 4.0 08/16/18 12:00 Nasal Cannula 4.0 08/16/18 12:00 91 08/16/18 12:00 97.8 89 18 120/77 (91) 96 08/16/18 08:39 97 121/73 08/16/18 08:33 97 121/73 08/16/18 08:32 121/73 08/16/18 08:00 4.0 08/16/18 08:00 98.2 97 18 121/73 (89) 97 08/16/18 08:00 95 08/16/18 08:00 Nasal Cannula 4.0 Intake and Output 08/16/18 08/17/18 19:00 07:00 Intake Total 300 ml Output Total 900 ml Balance -600 ml Intake Oral 300 ml Output Urine Total 900 ml General Appearance: no acute distress HEENT: normocephalic Respiratory/Chest: chest wall non-tender, decreased breath sounds Cardiovascular: normal peripheral pulses, normal rate Abdomen: normal bowel sounds Microbiology Date/Time Source Procedure Growth Status 08/14/18 20:00 Blood Blood Culture - Preliminary NO GROWTH AFTER 48 HOURS Resulted 08/14/18 19:45 Blood Blood Culture - Preliminary NO GROWTH AFTER 48 HOURS Resulted Laboratory Tests 08/16/18 08:08: Arterial Blood pH 7.420, Arterial Blood Partial Pressure CO2 43.4, Arterial Blood Partial Pressure O2 68.0L, Arterial Blood HCO3 27.5H, Arterial Blood Oxygen Saturation 90.7L, Arterial Blood Base Excess 2.7H, Carlos Test Positive 08/17/18 04:30: White Blood Count 5.9#, Red Blood Count 2.75L, Hemoglobin 8.8L, Hematocrit 27.6L , Mean Corpuscular Volume 100H, Mean Corpuscular Hemoglobin 32.1H, Mean Corpuscular Hemoglobin Concent 32.0, Red Cell Distribution Width 16.7H, Platelet Count 97L, Mean Platelet Volume 9.5, Neutrophils (%) (Auto) , Lymphocytes (%) (Auto) , Monocytes (%) (Auto) , Eosinophils (%) (Auto) , Basophils (%) (Auto) , Sodium Level 143, Potassium Level 3.8, Chloride Level 105 , Carbon Dioxide Level 28, Anion Gap 10, Blood Urea Nitrogen 37H, Creatinine 1.7H, Estimat Glomerular Filtration Rate 50.4, Glucose Level 69#L, Calcium Level 9.4, Magnesium Level 1.9 Current Medications Medications (Trade) Dose Ordered Sig/Nirav Route PRN Reason Start Time Stop Time Status Last Admin Dose Admin Amlodipine Besylate (Norvasc) 10 mg DAILY ORAL 08/17/18 09:00 09/14/18 08:59 Carvedilol (Coreg) 3.125 mg EVERY 12 HOURS ORAL 08/17/18 09:00 09/14/18 20:59 Ceftriaxone Sodium 1 gm/ Dextrose 55 ml @ 110 mls/hr Q24H IVPB 08/17/18 11:00 08/22/18 10:59 Furosemide (Lasix) 40 mg DAILY ORAL 08/17/18 09:00 09/15/18 08:59 Glipizide (Glucotrol) 5 mg BIAC ORAL 08/17/18 06:30 09/14/18 06:29 08/17/18 07:01 Isosorbide Dinitrate (Isordil) 10 mg Q8HR ORAL 08/17/18 06:00 09/14/18 05:59 08/17/18 07:01 Levothyroxine Sodium (Synthroid) 50 mcg DAILY@0630 ORAL 08/17/18 06:30 09/14/18 06:29 08/17/18 07:01 Lisinopril (Zestril) 2.5 mg DAILY ORAL 08/17/18 09:00 09/14/18 08:59 Metformin HCl (Glucophage) 1,000 mg BID ORAL 08/17/18 09:00 09/14/18 08:59 Metolazone (Zaroxolyn) 2.5 mg DAILY ORAL 08/17/18 09:00 09/14/18 12:59 Prednisone (predniSONE) 10 mg DAILY ORAL 08/17/18 09:00 09/15/18 08:59 Jose Juan Anderson MD Aug 17, 2018 07:21
--- NOTE | 2018-08-17 07:40 | NUR ---
NURSE NOTES: Pt report has been received from Herminia SHANKS. Pt sitting in bed and awake and able to follow commands. On O2 VIA N/C running 4L and is saturating at 100 percent, no signs or symptoms of acute respiratory distress noted at this time. Pt is placed on a over head cardiac catheterization technician able to display SR, no signs or symptoms of acute cardiac distress noted at this time. safety precautions in place; bed lock, bed rails up times 3 and padded, call light within reach, bed alarm active. will continue plan of care.
--- NOTE | 2018-08-17 07:40 | NUR ---
HAND-OFF: Report given to RIMMA Toro. Pt stable.
[2018-08-17 08:00] VITALS: BP 104/66
[2018-08-17] MEDS: metOLazone 2.5 MG TAB ORAL SCH (08:46)
[2018-08-17] MEDS: Lisinopril 2.5mg tab ORAL SCH (08:46)
[2018-08-17] MEDS: Furosemide 40mg tab ORAL SCH (08:47)
[2018-08-17] MEDS: metFORMIN 500mg tab ORAL SCH ×2 (08:47→17:27)
--- NOTE | 2018-08-17 09:06 | NUR ---
BRICK GRADERK 9 HANDLER/ DEPUTY SI: PULMONARY EDEMA VS: BP 104/66, P 83, T 98.0, RR 20, SpO2 100 On Bi-pap FiO2 40 RBC 2.75, H&H 8.8/27.6, PLT. COUNT 97, BUN 37, CR 1.7 IS:LASIX 40mg METFORMIN 1,000 mg METOLAZONE 2.5mg PREDNISONE 10mg GLIPIZIDE 5mg ISODRIL 10mg SYNTHROID 50mcg TELE STATUS
--- NOTE | 2018-08-17 09:11 | NUR ---
BOX PRINTING MACHINE OPERATOR NOTES PATIENT IS ON HOSPICE WITH [facility] . FAMILY WANTS TO RESUME CARE FROM SAME HOSPICE AT DISCHARGE.
--- NOTE | 2018-08-17 10:35 | NUR ---
NURSE NOTES: Dr. Anderson paged for gram positive cocci in cluster. Made the doctor aware of patient on IV Rocephin q24 and No new order received.
[2018-08-17] MEDS ORDERED: cefTRIAXone 1 GM in D5W 55 ML IVPB SCH (11:00)
--- NOTE | 2018-08-17 11:19 | NUR ---
*-* INSURANCE *-* UPDATED CLINICALS HAVE BEEN FACED TO: [facility] [place]: ANNY LARSEN P:[phone] F:[phone]
[2018-08-17 12:00] VITALS: BP 122/67
--- NOTE | 2018-08-17 13:35 | NUR ---
RD ASSESSMENT & RECOMMENDATIONS SEE CARE ACTIVITY FOR COMPLETE ASSESSMENT DAILY ESTIMATED NEEDS: Needs based on DM, pulmonary, cardiac 76kg adj 25-30 kcals/kg 1858-7338 total kcals 1-1.5 g protein/kg 76-114 g total protein 1500ml/24 hrs per MD NUTRITION DIAGNOSIS: Decreased sodium needs r/t pulmonary edema as evidenced by pt w/ BL LE edema, on diuretics, w/ h/o CHF and COPD. (CURRENT DIET:Cardiac) PO DIET RECOMMENDATIONS: Diet change-->> CCHO MED + LOW NA ADDITIONAL RECOMMENDATIONS: 1) Diet change to CCHO MED for improved glycemic control 2) Obtain a standing weight as able/ Calibrated bed scale wt (EMR WT: 269# vs BED SCALE WT: 207#) 3) Check lytes daily on lasix 4) Add B-complex x1 daily
[2018-08-17 16:00] VITALS: BP 128/76
--- NOTE | 2018-08-17 19:31 | NUR ---
HAND-OFF: Report given to Kurtis SHANKS. Pt remains stable.
[2018-08-17 20:00] VITALS: BP 123/76
[2018-08-17] MEDS ORDERED: D5LR 1000 ml IV ONE (20:27)
[2018-08-17] MEDS ORDERED: NS 275ml ONE (20:27)
[2018-08-17] MEDS ORDERED: Tubing IV Secondary IV ONE (20:27)
--- NOTE | 2018-08-17 20:33 | NUR ---
NURSE NOTES: received patient from RIMMA Toro. patient is awake and sitting at the edge of the bed. he is arousable to voice and able to follow commands. denies pain at this time. patient is on room air, no s/sx of respiratory distress at this time. IV site is patent and intact. solis catheter is patent, draining and intact. bed in lowest position and locked, padded siderails up X2, call light within reach. will continue to monitor.
--- NOTE | 2018-08-17 23:51 | Cardiology Progress Note ---
Assessment/Plan Assessment/Plan 1. Acute systolic and diastolic CHF with LVEF at 10%, continue diuretics, on GDMT. 2. Paroxysmal atrial fibrillation, in SR. 3. Obesity, possible obesity hypoventilation syndrome. 4. HTN, continue B-blockers and ACEI. 5. History of diabetes mellitus, consider aspirin and statin. 6. Moderate pulmonary HTN due to Left heart failure. 7. Pericardial effusion. Subjective Subjective Sinus rhythm at rate of 81. Objective Last 24 Hour Vital Signs Date Time Temp Pulse Resp B/P (MAP) Pulse Ox O2 Delivery O2 Flow Rate FiO2 08/17/18 22:51 81 24 95 Facial 40 08/17/18 21:56 118/71 08/17/18 20:59 98 123/76 08/17/18 20:00 4.0 08/17/18 20:00 88 08/17/18 20:00 97.2 98 20 123/76 (92) 99 08/17/18 19:02 96 Nasal Cannula 3.0 32 08/17/18 19:02 86 18 98 Nasal Cannula 3.0 32 08/17/18 16:00 4.0 08/17/18 16:00 97.5 94 20 128/76 (93) 96 08/17/18 16:00 Bi-pap 08/17/18 16:00 88 08/17/18 13:58 122/67 08/17/18 12:00 4.0 08/17/18 12:00 98.3 83 20 122/67 (85) 95 08/17/18 12:00 Bi-pap 08/17/18 12:00 81 08/17/18 09:00 Bi-pap 08/17/18 08:46 104/66 08/17/18 08:45 85 104/66 08/17/18 08:45 85 104/66 08/17/18 08:00 81 08/17/18 08:00 98.0 85 20 104/66 (79) 95 08/17/18 08:00 4.0 08/17/18 07:01 113/71 08/17/18 06:50 97 Nasal Cannula 3.0 32 08/17/18 06:50 80 18 97 Nasal Cannula 3.0 32 08/17/18 04:00 98.0 83 17 113/71 (85) 100 08/17/18 04:00 Bi-pap 08/17/18 04:00 86 08/17/18 04:00 40 08/17/18 03:30 87 20 96 Facial 40 08/17/18 01:25 95 16 97 Facial 40 08/17/18 00:00 98.0 90 18 110/61 (77) 100 08/17/18 00:00 Nasal Cannula 4.0 08/17/18 00:00 87 Intake and Output 08/16/18 08/17/18 19:00 07:00 Intake Total 300 ml Output Total 900 ml 200 ml Balance -600 ml -200 ml Intake Oral 300 ml Output Urine Total 900 ml 200 ml 2D Echo: EF 10%, Global LVHK, Peric.Effu, Grade II LVDD, Mod MR, RAP20 mmHg, RVSP 42 Laboratory Tests Test 08/17/18 04:30 White Blood Count 5.9 K/UL (4.8-10.8) # Red Blood Count 2.75 M/UL (4.70-6.10) L Hemoglobin 8.8 G/DL (14.2-18.0) L Hematocrit 27.6 % (42.0-52.0) L Mean Corpuscular Volume 100 FL (80-99) H Mean Corpuscular Hemoglobin 32.1 PG (27.0-31.0) H Mean Corpuscular Hemoglobin Concent 32.0 G/DL (32.0-36.0) Red Cell Distribution Width 16.7 % (11.6-14.8) H Platelet Count 97 K/UL (150-450) L Mean Platelet Volume 9.5 FL (6.5-10.1) Neutrophils (%) (Auto) % (45.0-75.0) Lymphocytes (%) (Auto) % (20.0-45.0) Monocytes (%) (Auto) % (1.0-10.0) Eosinophils (%) (Auto) % (0.0-3.0) Basophils (%) (Auto) % (0.0-2.0) Sodium Level 143 MMOL/L (136-145) Potassium Level 3.8 MMOL/L (3.5-5.1) Chloride Level 105 MMOL/L (98-107) Carbon Dioxide Level 28 MMOL/L (21-32) Anion Gap 10 mmol/L (5-15) Blood Urea Nitrogen 37 mg/dL (7-18) H Creatinine 1.7 MG/DL (0.55-1.30) H Estimat Glomerular Filtration Rate 50.4 mL/min (>60) Glucose Level 69 MG/DL (74-106) #L Calcium Level 9.4 MG/DL (8.5-10.1) Magnesium Level 1.9 MG/DL (1.8-2.4) Objective HEENT: Atraumatic and normocephalic. Anicteric. Pupils are equal, round, and reactive to light and accommodation. Conjunctival pallor is present. NECK: JVP cannot be assessed in view of short neck and obesity. No carotid bruit. CARDIOVASCULAR: Normal S1, S2. Regular rate and rhythm. Tachycardic. No murmurs, gallops, or rubs. LUNGS: Diminished breath sounds with bibasilar crackles. ABDOMEN: Distended. No hepatosplenomegaly. Positive bowel sounds. EXTREMITIES: 3+ tense pitting edema to lower extremities. Sheng Smith MD Aug 17, 2018 23:51
[2018-08-18] VITALS: BP 124/77
[2018-08-18 04:00] VITALS: BP 111/67
[2018-08-18] MEDS: GlipiZIDE 5mg tab ORAL SCH (06:18)
[2018-08-18 06:59] LABS: ANION GAP 8 mmol/L (5-15); BLOOD UREA NITROGEN 33 mg/dL (7-18); CALCIUM 9.2 MG/DL (8.5-10.1); CARBON DIOXIDE 29 MMOL/L (21-32); CHLORIDE 103 MMOL/L (98-107); CREATININE 1.3 MG/DL (0.55-1.30); POTASSIUM 3.2 MMOL/L (3.5-5.1); SODIUM 140 MMOL/L (136-145)
--- NOTE | 2018-08-18 07:33 | NUR ---
HAND-OFF: Report given to RIMMA Haas. patient is in stable condition.
[2018-08-18 08:00] VITALS: BP 126/68
--- NOTE | 2018-08-18 08:00 | NUR ---
NURSE NOTES: Patient is alert and awake. Patient is sitting at side of bed. Side rails are upx2 and padded. Patient is on room air. No s/s of distress. Bed is locked, in lowest position, and call light is within reach. Will continue to monitor.
--- NOTE | 2018-08-18 08:47 | NUR ---
NURSE NOTES: Potassium this AM 3.2. Dr. Smith called, new order received.
[2018-08-18] MEDS: Furosemide 40mg tab ORAL SCH (09:31)
[2018-08-18] MEDS: Lisinopril 2.5mg tab ORAL SCH (09:31)
[2018-08-18] MEDS: metOLazone 2.5 MG TAB ORAL SCH (09:32)
[2018-08-18] MEDS: metFORMIN 500mg tab ORAL SCH (09:32)
--- NOTE | 2018-08-18 10:11 | Pulmonology Progress Note ---
Assessment/Plan Assessment/Plan IMPRESSION: 1. Pulmonary edema. 2. COPD. 3. Deafness. 4. Seizure disorder. 5. Pulmonary edema. 6. DM DISCUSSION: Continue diuresis. Continue low-dose steroids. Monitor for hyperglycemia I will follow carefully. DC planning home with hospice Subjective Interval Events: None new Constitutional: Reports: no symptoms HEENT: Repors: no symptoms Respiratory: Reports: no symptoms Gastrointestinal/Abdominal: Reports: no symptoms Genitourinary: Reports: no symptoms Neurologic: Reports: no symptoms Allergies: Coded Allergies: No Known Allergies (Unverified , 09/28/16) Objective Last 24 Hour Vital Signs Date Time Temp Pulse Resp B/P (MAP) Pulse Ox O2 Delivery O2 Flow Rate FiO2 08/18/18 09:32 88 126/68 08/18/18 09:31 126/68 08/18/18 08:00 97.9 88 20 126/68 (87) 98 08/18/18 06:19 111/67 08/18/18 04:00 4.0 08/18/18 04:00 97.5 84 20 111/67 (82) 96 08/18/18 04:00 83 08/18/18 01:15 80 15 99 Facial 40 08/18/18 00:00 89 20 124/77 (93) 100 08/18/18 00:00 87 08/18/18 00:00 40 08/17/18 22:51 81 24 95 Facial 40 08/17/18 21:56 118/71 08/17/18 20:59 98 123/76 08/17/18 20:00 4.0 08/17/18 20:00 88 08/17/18 20:00 97.2 98 20 123/76 (92) 99 08/17/18 19:02 96 Nasal Cannula 3.0 32 08/17/18 19:02 86 18 98 Nasal Cannula 3.0 32 08/17/18 16:00 4.0 08/17/18 16:00 97.5 94 20 128/76 (93) 96 08/17/18 16:00 Bi-pap 08/17/18 16:00 88 08/17/18 13:58 122/67 08/17/18 12:00 4.0 08/17/18 12:00 98.3 83 20 122/67 (85) 95 08/17/18 12:00 Bi-pap 08/17/18 12:00 81 Intake and Output 08/17/18 08/18/18 19:00 07:00 Intake Total 895 ml Output Total 1200 ml 1400 ml Balance -305 ml -1400 ml Intake Oral 840 ml IV Total 55 ml Output Urine Total 1200 ml 1400 ml General Appearance: no acute distress HEENT: normocephalic Respiratory/Chest: chest wall non-tender Cardiovascular: normal peripheral pulses Abdomen: normal bowel sounds Laboratory Tests 08/18/18 05:15: Sodium Level 140, Potassium Level 3.2L, Chloride Level 103, Carbon Dioxide Level 29, Anion Gap 8, Blood Urea Nitrogen 33H, Creatinine 1.3, Estimat Glomerular Filtration Rate > 60, Glucose Level 74, Calcium Level 9.2, Magnesium Level 1.8 Current Medications Medications (Trade) Dose Ordered Sig/Nirav Route PRN Reason Start Time Stop Time Status Last Admin Dose Admin Carvedilol (Coreg) 12.5 mg EVERY 12 HOURS ORAL 08/18/18 09:00 09/17/18 08:59 08/18/18 09:32 Ceftriaxone Sodium 1 gm/ Dextrose 55 ml @ 110 mls/hr Q24H IVPB 08/17/18 11:00 08/22/18 10:59 08/17/18 11:29 Furosemide (Lasix) 40 mg DAILY ORAL 08/17/18 09:00 09/15/18 08:59 08/18/18 09:31 Glipizide (Glucotrol) 5 mg BIAC ORAL 08/17/18 06:30 09/14/18 06:29 08/18/18 06:18 Isosorbide Dinitrate (Isordil) 10 mg Q8HR ORAL 08/17/18 06:00 09/14/18 05:59 08/18/18 06:19 Levothyroxine Sodium (Synthroid) 50 mcg DAILY@0630 ORAL 08/17/18 06:30 09/14/18 06:29 08/18/18 06:18 Lisinopril (Zestril) 2.5 mg DAILY ORAL 08/17/18 09:00 09/14/18 08:59 08/18/18 09:31 Metformin HCl (Glucophage) 1,000 mg BID ORAL 08/17/18 09:00 09/14/18 08:59 08/18/18 09:32 Metolazone (Zaroxolyn) 2.5 mg DAILY ORAL 08/17/18 09:00 09/14/18 12:59 08/18/18 09:32 Prednisone (predniSONE) 10 mg DAILY ORAL 08/17/18 09:00 09/15/18 08:59 08/18/18 09:32 Jose Juan Anderson MD Aug 18, 2018 10:11
--- NOTE | 2018-08-18 11:13 | NUR ---
SHRIMP TRAWLER NOTES SPOKE WITH [facility] PT'S SISTER, SHE WILL BE HOME TO RECEIVE PT. SPOKE WITH SKYE AT [facility], MADE AWARE PT TO RETURN HOME TODAY.[facility] TO TRANSPORT PT HOME WITH ETA 1230. NURSE MADE AWARE.
[2018-08-18] MEDS ORDERED: LANTUS SOL100 UNIT/1 SUBQ (11:38)
[2018-08-18] MEDS ORDERED: FUROSEMIDE40 MG ORAL (11:40)
[2018-08-18 12:00] VITALS: BP 143/75
--- NOTE | 2018-08-18 14:20 | NUR ---
NURSE NOTES: Patient discharged at 1310 Home with Hospice via ambulance. Discharge instructions given to ambulance personnel. Prescriptions given to patient. Belongings reviewed and accounted for. IV removed. Díaz catheter removed. Patient stable upon discharge.
--- NOTE | 2018-08-19 11:26 | Discharge Summary ---
Discharge Summary Discharge Summary _ DATE OF ADMISSION: 08/14/2018 DATE OF DISCHARGE: 08/18/2018 DISCHARGED BY: Dr. Marcial Anderson CONSULTANTS: Dr. Sheng Smith BRIEF HOSPITAL COURSE: Patient is a 57-year-old male, who presented to the hospital due to change in mental status. He also reported shortness of breath and distention of the abdomen. Patient is staffed and unable to communicate. Previous history was notable for atrial fibrillation, CHF and COPD. On evaluation at ED, blood pressure was stable, heart rate was elevated to 112, he was saturating 100% on nonrebreather mask. Blood work showed normal WBC. Hemoglobin 10, hematocrit 32. Electrolytes were normal. Troponin was 0.027 and proBNP was 6743. TSH level 3.88. He was given breathing treatment. EKG was in sinus tachycardia at the rate of 110, with nonspecific ST - T wave changes. Chest x-ray showed evidence of CHF/pulmonary edema. ABG showed hypoxemia. He was started on BiPAP. He was given diuresis. He was then admitted to [facility] for pulmonary edema. He was continued on diuresis. He was placed on fluid restriction. He was started on low-dose steroids. Glucose was monitored. He was continued on Glucophage and glipizide. Loader Helper was consulted. Metolazone was added to his regimen. Patient has a history of atrial fibrillation and was in sinus on telemetry. He was given Coreg lisinopril and Isordil. TSH was slightly elevated to 3.8. He was given levothyroxine 50 mcg daily, Venous duplex was negative for acute DVT bilaterally. Echocardiogram showed four-chamber dilated cardiomyopathy with severe global left ventricular hypokinesia. EF 10-15%. He was eventually tapered off BiPAP. He was placed on nasal cannula. He was saturating well. He was eventually discharged home back on hospice. FINAL DIAGNOSES: Acute respiratory failure, due to pulmonary edema, requiring BiPAP, resolved COPD Seizure disorder Diabetes mellitus Deafness Altered level of consciousness/change in mental status/encephalopathy DISPOSITION: DC home with hospice. DISCHARGE MEDICATIONS: Refer to Discharge Medication List. I have been assigned to complete a discharge summary on this account, I was not involved with the patient's management. Arabella Garay NP Aug 19, 2018 11:26
--- NOTE | 2018-08-19 13:45 | NUR ---
*-* INSURANCE *-* DISCHARGE SUMMARY HAVE BEEN FACED TO: [facility]: ANNY LARSEN P:[phone] F:[phone]
== END 2018-08-18 13:46 | disposition hospice, home (50) | DRG 291 ==
LOC: EDBD 19:44 → EMR 20:54 → 2W 22:29 → EDBEDREQSVC 23:15 → EDBEDREQ 23:15 → 2E 08-17 05:20
PROC: 5A09457 Assistance with Respiratory Ventilation, 24-96 Consecutive Hours, Continuous Positive Airway Pressure (ICD-10-PCS; principal; 2018-08-14)
DX: I11.0 Hypertensive heart disease with heart failure (principal); J96.01 Acute respiratory failure with hypoxia; E66.2 Morbid (severe) obesity with alveolar hypoventilation; Z68.41 Body mass index [BMI] 40.0-44.9, adult; I31.3 Pericardial effusion (noninflammatory); G93.49 Other encephalopathy; I50.41 Acute combined systolic (congestive) and diastolic (congestive) heart failure; I42.0 Dilated cardiomyopathy; J44.9 Chronic obstructive pulmonary disease, unspecified; H91.90 Unspecified hearing loss, unspecified ear; G40.909 Epilepsy, unspecified, not intractable, without status epilepticus; I48.0 Paroxysmal atrial fibrillation; Z79.4 Long term (current) use of insulin; E11.9 Type 2 diabetes mellitus without complications; I27.20 Pulmonary hypertension, unspecified; Z68.31 Body mass index [BMI] 31.0-31.9, adult
CPT/HCPCS: 36415; 36600; 71045; 80048; 80053; 80299; 81003; 82248; 82550; 82803; 82962; 83605; 83690; 83735; 83880; 84443; 84484; 85007; 85025; 85610; 85730; 87040; 87181; 93005; 93306; 93970; 94640; 94660; 94664; 96374; 99285; J8499

== ENCOUNTER 2019-02-12 13:13 | Emergency (ER) | payer MEDICARE, MEDICAID ==
[~2019-02-12] VITALS: Ht 177.8 cm; Wt 104.3 kg
[~2019-02-12 13:13] MED LIST changes: +AMLODIPINE BESY10 MG ORAL; +BIDIL TABLET1 EACH PO; +BUMETANIDE1 MG ORAL; +FUROSEMIDE40 MG ORAL; +GLIPIZIDE10 MG PO; +ISOSORBIDE DINI20 M2 PO; +KEPPRA1000 MG ORAL; +LANTUS SOL100 UNIT/1 SUBQ; +LEXAPRO20 MG ORAL; +LIPITOR40 MG ORAL; +LISINOPRIL5 MG ORAL; +METFORMIN HCL1000 M1 ORAL; +METOPROLOL SUCC25 MG ORAL; +SYNTHROID137 MCG ORAL
--- NOTE | 2019-02-12 13:15 | NUR ---
ED Nurse Note: Pt arrived to ED bought by [id number], coming from home with the c/o clogged suprapubic catheter. Placed on bed, hooked to color paste mixing supervisor. VSS, not in respiratory distress. ERMD on bedside, US performed. Irrigate catheter done and replaced bag with a new one. Will continue to monitor.
--- NOTE | 2019-02-12 13:33 | Emergency Room Report ---
History of Present Illness General Chief Complaint: Male Urogenital Problems Source: Patient Present Illness HPI 58-year-old male suprapubic cath, became pulled clogged prior to arrival, no aggravating relieving factors severity is severe, constant, symptoms have been ongoing for 30 minutes, no fevers no chills no chest pain shortness of breath patient presents via EMS for unclogging of the catheter. Allergies: Coded Allergies: No Known Allergies (Unverified , 09/28/16) Patient History Past Medical History: see triage record Reviewed Nursing Documentation: PMH: Agreed; PSxH: Agreed Nursing Documentation-PMH Past Medical History: No History, Except For Hx Cardiac Problems: Yes - AFIB, HTN, CHF Hx Hypertension: Yes Hx COPD: Yes Hx Diabetes: Yes Hx Cancer: No Hx Gastrointestinal Problems: No Hx Seizures: Yes Review of Systems All Other Systems: negative except mentioned in HPI Physical Exam Vital Signs Date Time Temp Pulse Resp B/P (MAP) Pulse Ox O2 Delivery O2 Flow Rate FiO2 02/12/19 13:08 97.5 110 16 132/88 (103) 97 Room Air General Appearance: well appearing, no apparent distress Head: normocephalic, atraumatic ENT: hearing grossly normal, normal voice Neck: full range of motion, supple Respiratory: no respiratory distress, speaking full sentences Gastrointestinal: other - Suprapubic fullness Neurologic: alert, normal gait Psychiatric: mood/affect normal Skin: no rash Medical Decision Making Diagnostic Impression: Primary Impression: Obstruction of Díaz catheter Qualified Codes: T83.091A - Other mechanical complication of indwelling urethral catheter, initial encounter ER Course 58-year-old male presents with obstructed Díaz suprapubic catheter, irrigated now patient is asymptomatic, and feels better Catheter irrigated obstruction removed Patient tolerated Dispo home w/ return precautions Last Vital Signs Date Time Temp Pulse Resp B/P (MAP) Pulse Ox O2 Delivery O2 Flow Rate FiO2 02/12/19 13:08 97.5 110 16 132/88 (103) 97 Room Air Disposition: HOME, SELF-CARE Condition: Stable Referrals: [facility] Patient Instructions: Díaz Catheter Care, Adult, [id number] Additional Instructions: The patient was provided with discharge instructions, notified to follow-up with a primary care doctor and or specialist in the next 24-48 hours, and to return to the ED if they have worsening of their symptoms. Please note that this report is being documented using [employer]onto[employer] technology. This can lead to erroneous entry secondary to incorrect interpretation by the dictating instrument. Nehemiah Fregoso MD Feb 12, 2019 13:33
[2019-02-12 13:38] VITALS: BP 123/87
--- NOTE | 2019-02-12 13:45 | NUR ---
ED Nurse Note: Pt on stable condition; VSS, denied pain. Noticed output on catheter bag with 75cc clear yellowish urine.
[2019-02-12 15:15] VITALS: BP 133/88
--- NOTE | 2019-02-12 15:15 | NUR ---
ER DISCHARGE NOTE: Pt is cleared to be discharged per ERMD, pt is aox3 with difficulty of hearing, on room air, with stable vital signs. pt was given dc instructions, pt was able to verbalize understanding, pt id band and iv site removed without complications. Pt was transported to home by ambulance. Addendum: 02/12/19 at 1654 by JOSE ER DISCHARGE NOTE: Pt is cleared to be discharged per ERMD, pt is aox3 with difficulty of hearing, on room air, with stable vital signs. pt was given dc instructions, pt was able to verbalize understanding, pt id band and iv site removed without complications. Pt was transported to home by [facility].
== END 2019-02-12 15:15 | disposition home or self-care (01) ==
LOC: EDBD 13:13 → EMR 14:55
DX: T83.091A Other mechanical complication of indwelling urethral catheter, initial encounter (principal); X58.XXXA Exposure to other specified factors, initial encounter; Y92.9 Unspecified place or not applicable; I11.0 Hypertensive heart disease with heart failure; I50.9 Heart failure, unspecified; J44.9 Chronic obstructive pulmonary disease, unspecified; E11.9 Type 2 diabetes mellitus without complications; G40.909 Epilepsy, unspecified, not intractable, without status epilepticus
CPT/HCPCS: 99284